=== PATIENT | male | born 1980 | race African-American/Black ===

== ENCOUNTER 2024-11-27 14:03 | Emergency (ER) | payer MEDICAID ==
[~2024-11-27] VITALS: Ht 185.4 cm; Wt 100.0 kg
[2024-11-27 14:10] VITALS: O2SAT 98
[2024-11-27] MEDS: SODIUM CHLORIDE 0.9% 1,000 ML IV ONE (14:42)
[2024-11-27 14:44] LABS: BASOPHILS % 0.5 % (0.0-2.0); EOSINOPHILS % 6.2 % (0.0-5.0); HEMATOCRIT. 38.2 % (42.0-52.0); HEMOGLOBIN. 12.6 g/dL (14.0-18.0); LYMPHOCYTES % 37.1 % (20.0-50.0); MEAN PLATELET VOLUME 8.0 fl (7.4-10.4); MONOCYTES % 13.4 % (2.0-8.0); NEUTROPHILS % 42.8 % (40.0-76.0); PLATELET 260 x1000/uL (130-400); RED BLOOD CELL COUNT 4.17 mill/uL (4.7-6.1); RED CELL DISTRIBUTION WIDTH 14.8 % (11.6-14.6)
[2024-11-27 14:58] LABS: UREA NITROGEN BLOOD 9 mg/dL (9-23)
[2024-11-27 14:59] LABS: CREATININE 1.1 mg/dL (0.6-1.3); TROPONIN I HIGH SENSITIVITY < 4 ng/L (3.0-53)
[2024-11-27 15:01] LABS: ASPARTATE AMINOTRANSFERASE 31 IU/L (<34); BILIRUBIN DIRECT 0.3 mg/dL (<=3.0); BILIRUBIN TOTAL 0.7 mg/dL (0.1-1.0)
[2024-11-27 15:02] LABS: PROTEIN TOTAL 7.5 g/dL (6.0-8.3)
[2024-11-27 16:17] VITALS: BP 124/72; PULSE 53; RESP 13; TEMP 36.9; O2SAT 97
== END 2024-11-27 16:15 | disposition home or self-care (01) ==
LOC: ER 14:03
DX: R56.9 Unspecified convulsions (principal); E11.9 Type 2 diabetes mellitus without complications
CPT/HCPCS: 80076; 80048; 80320; 82550; 83735; 85025; 84484; 36415; 70450; 93005; 96360; 99284; J7030; Z7610; G0480